=== PATIENT | female | born 1985 | race African-American/Black ===

== ENCOUNTER 2017-10-19 04:19 | Emergency (ER) | payer MEDICARE, MEDICAID ==
[~2017-10-19] VITALS: Ht 157.5 cm; Wt 75.0 kg
[2017-10-19 04:21] VITALS: BP 128/80
[2017-10-19] MEDS ORDERED: ACETAMINOPHEN 325 MG TABLET PO ONE (05:00)
[2017-10-19 05:22] LABS: BASOPHILS # (AUTO) 0.07 x10^3/uL (0-0.1); BASOPHILS % (AUTO) 1 % (0-1); EOSINOPHILS # (AUTO) 0.08 x10^3/uL (0-0.4); EOSINOPHILS % (AUTO) 1 % (1-7); LYMPHOCYTES # (AUTO) 1.97 x10^3/uL (1-3.4); LYMPHOCYTES % (AUTO) 36 % (22-44); MD NO; MEAN CORPUSCULAR HEMOGLOBIN 26.6 pg (27.0-34.8); MEAN CORPUSCULAR HGB CONC 32.7 g/dL (32.4-35.8); MEAN CORPUSCULAR VOLUME 81.3 fL (80-100); MEAN PLATELET VOLUME 8.7 fL (7.4-10.4); MONOCYTES % (AUTO) 9 % (2-9); NEUTROPHILS # (AUTO) 2.91 x10^3/uL (1.8-6.8); NEUTROPHILS % (AUTO) 53 % (42-75); PLATELET COUNT 301 x10^3/uL (130-400); RED BLOOD COUNT 4.48 x10^6/uL (3.82-5.3); RED CELL DISTRIBUTION WIDTH 16.8 % (9.6-15.2)
[2017-10-19] MEDS ORDERED: KETOROLAC 30 MG/1 ML IM ONE (06:00)
== END 2017-10-19 08:19 | disposition home or self-care (01) ==
LOC: ED 07:30
DX: R51 Headache (principal); R22.0 Localized swelling, mass and lump, head; M54.9 Dorsalgia, unspecified; E11.9 Type 2 diabetes mellitus without complications; Z59.0 Homelessness; Y04.0XXA Assault by unarmed brawl or fight, initial encounter; Y93.89 Activity, other specified; Y92.89 Other specified places as the place of occurrence of the external cause; Y99.8 Other external cause status
CPT/HCPCS: 36415; 82962; 84702; 85025; 86901; 99284

== ENCOUNTER 2017-10-25 22:38 | Emergency (ER) | payer MEDICARE, MEDICAID ==
[2017-10-25 23:06] VITALS: BP 112/82
[2017-10-25] MEDS ORDERED: INSU100C5 SQ-INSULIN (23:07)
[2017-10-25] MEDS ORDERED: ONDANSETRON ODT 4 MG PO ONE (23:30)
[2017-10-25] MEDS ORDERED: ONDANSETRON ODT 4 MG ONE (23:32)
[2017-10-26] MEDS ORDERED: CIPROFLOXACIN OPHTH SOLN 0.3%, 5ML RIGHTEYE SCH (08:00)
== END 2017-10-26 00:41 | disposition home or self-care (01) ==
LOC: ED 23:06
DX: S09.90XA Unspecified injury of head, initial encounter (principal); E11.9 Type 2 diabetes mellitus without complications; X58.XXXA Exposure to other specified factors, initial encounter; Y93.89 Activity, other specified; Y92.89 Other specified places as the place of occurrence of the external cause; Y99.8 Other external cause status
CPT/HCPCS: 70450; 70486; 82962; 99284; Q0162

== ENCOUNTER 2017-11-29 20:46 | Emergency (ER) | payer MEDICARE, MEDICAID ==
[~2017-11-29 20:46] MED LIST: INSU100C5 SQ-INSULIN
[2017-11-29 20:56] VITALS: BP 115/76
== END 2017-11-29 21:28 | disposition home or self-care (01) ==
LOC: ED 21:22
DX: J04.0 Acute laryngitis (principal); B97.89 Other viral agents as the cause of diseases classified elsewhere; E11.9 Type 2 diabetes mellitus without complications
CPT/HCPCS: 99283

== ENCOUNTER 2018-02-23 12:14 | Emergency (ER) | payer MEDICARE, MEDICAID ==
[~2018-02-23] VITALS: Ht 157.5 cm; Wt 77.3 kg
[2018-02-23] MEDS ORDERED: INSU100V8 SQ (12:39)
[2018-02-23] MEDS ORDERED: METF500T27 PO (12:39)
[2018-02-23] MEDS ORDERED: MORPHINE SULFATE 4 MG/ML, 1ML IVPush PRN (13:00)
[2018-02-23] MEDS ORDERED: ONDANSETRON 2MG/ML, 2ML IVPush ONE (13:00)
[2018-02-23] MEDS ORDERED: SODIUM CHLORIDE 0.9% 1,000ML IVBOLUS ONE (13:00)
[2018-02-23] MEDS ORDERED: MORPHINE SULFATE 4 MG/ML, 1ML ONE ×2 (13:23→14:00)
[2018-02-23] MEDS ORDERED: ONDANSETRON 2MG/ML, 2ML ONE (13:23)
[2018-02-23] MEDS ORDERED: PLEASE ENTER HEIGHT AND WEIGHT MC SCH (13:30)
[2018-02-23 13:33] LABS: FIO2 ROOM AIR %; PH, VENOUS 7.417 pH (7.320-7.420)
[2018-02-23 13:44] LABS: BASOPHILS # (AUTO) 0.03 x10^3/uL (0-0.1); BASOPHILS % (AUTO) 1 % (0-1); EOSINOPHILS # (AUTO) 0.06 x10^3/uL (0-0.4); EOSINOPHILS % (AUTO) 1 % (1-7); LYMPHOCYTES # (AUTO) 2.12 x10^3/uL (1-3.4); LYMPHOCYTES % (AUTO) 35 % (22-44); MD NO; MEAN CORPUSCULAR HEMOGLOBIN 27.6 pg (27.0-34.8); MEAN CORPUSCULAR HGB CONC 33.7 g/dL (32.4-35.8); MEAN PLATELET VOLUME 9.4 fL (7.4-10.4); MONOCYTES # (AUTO) 0.36 x10^3/uL (0.2-0.8); MONOCYTES % (AUTO) 6 % (2-9); NEUTROPHILS # (AUTO) 3.51 x10^3/uL (1.8-6.8); NEUTROPHILS % (AUTO) 58 % (42-75); PLATELET COUNT 248 x10^3/uL (130-400); RED BLOOD COUNT 4.64 x10^6/uL (3.82-5.3); RED CELL DISTRIBUTION WIDTH 15.7 % (9.6-15.2)
[2018-02-23] MEDS ORDERED: PROPARACAINE OPHTH 0.5%, 15ML ONE (13:45)
[2018-02-23 13:46] LABS: ALANINE AMINOTRANSFERASE 17 U/L (12-78); ALBUMIN 3.4 g/dL (3.4-5.0); ANION GAP 8 mmol/L (5-15); CALCIUM 8.6 mg/dL (8.5-10.1); CHLORIDE 102 mmol/L (98-107); CREATININE 0.87 mg/dL (0.55-1.02)
[2018-02-23 13:48] LABS: ALKALINE PHOSPHATASE 77 U/L (45-117); BILIRUBIN,TOTAL 0.3 mg/dL (0.2-1.0); TOTAL PROTEIN 7.7 g/dL (6.4-8.2)
[2018-02-23 13:51] LABS: MICROSCOPIC NOT IND
[2018-02-23] MEDS ORDERED: FLUCONAZOLE 100 MG TABLET ONE ×2 (13:52→13:59)
[2018-02-23 13:55] LABS: CULTURE INDICATED? NO
[2018-02-23] MEDS ORDERED: PROMETHAZINE 25 MG/ML, 1ML ONE (13:59)
[2018-02-23] MEDS ORDERED: FLUORESCEIN OPHTHALMIC 1 MG STRIP EACHEYE ONE (14:00)
[2018-02-23] MEDS ORDERED: PROMETHAZINE 25 MG/ML, 1ML IM ONE (14:00)
[2018-02-23] MEDS ORDERED: FLUCONAZOLE 100 MG TABLET PO ONE (14:00)
[2018-02-23] MEDS ORDERED: PROPARACAINE OPHTH 0.5%, 15ML EACHEYE ONE (14:00)
[2018-02-23 14:01] LABS: ACETONE, SERUM Negative (Negative)
[2018-02-23] MEDS ORDERED: INSULIN REGULAR 100 UNITS/ML, 3ML VIAL IVPush ONE (14:30)
[2018-02-23] MEDS ORDERED: INSULIN REGULAR 100 UNITS/ML, 3ML VIAL ONE (14:31)
[2018-02-23] MEDS ORDERED: DIPHENHYDRAMINE 50 MG/ML, 1ML ONE (14:37)
[2018-02-23] MEDS ORDERED: DIPHENHYDRAMINE 50 MG/ML, 1ML IVPush ONE (15:00)
[2018-02-23] MEDS ORDERED: METHOCARBAMOL 750 MG TABLET ONE (16:18)
[2018-02-23] MEDS ORDERED: METHOCARBAMOL 750 MG TABLET PO ONE (16:30)
[2018-02-23 16:36] VITALS: BP 110/67
== END 2018-02-23 16:41 | disposition home or self-care (01) ==
LOC: ED 16:35
DX: S63.521A Sprain of radiocarpal joint of right wrist, initial encounter (principal); E11.65 Type 2 diabetes mellitus with hyperglycemia; H57.12 Ocular pain, left eye; R11.2 Nausea with vomiting, unspecified; X58.XXXA Exposure to other specified factors, initial encounter; Y93.89 Activity, other specified; Y92.89 Other specified places as the place of occurrence of the external cause; Y99.8 Other external cause status
CPT/HCPCS: 70450; 70486; 71045; 73110; 80053; 81003; 82010; 82803; 82962; 83690; 85025; 96361; 96372; 96374; 96375; 99285; J1200; J2405; J2550; J7030

== ENCOUNTER 2018-04-05 04:54 | Emergency (ER) | payer MEDICARE, MEDICAID ==
[~2018-04-05] VITALS: Ht 157.5 cm; Wt 79.1 kg
[~2018-04-05 04:54] MED LIST changes: +INSU100V8 SQ; +METF500T27 PO
[2018-04-05] MEDS ORDERED: ONDANSETRON 2MG/ML, 2ML ONE (05:22)
[2018-04-05] MEDS ORDERED: FAMOTIDINE 20 MG/2 ML ONE (05:22)
[2018-04-05] MEDS ORDERED: FAMOTIDINE 20 MG/2 ML IVP ONE (05:30)
[2018-04-05] MEDS ORDERED: SODIUM CHLORIDE 0.9% 1,000ML IVBOLUS ONE (05:30)
[2018-04-05] MEDS ORDERED: ONDANSETRON 2MG/ML, 2ML IVPush ONE (05:30)
[2018-04-05] MEDS ORDERED: MORPHINE SULFATE 4 MG/ML, 1ML ONE ×2 (06:11→07:22)
[2018-04-05] MEDS: MORPHINE SULFATE 4 MG/ML, 1ML IVPush PRN ×2 (06:34→07:27)
[2018-04-05 06:49] LABS: FIO2 RA %; PH, VENOUS 7.441 pH (7.320-7.420)
[2018-04-05 06:50] LABS: BASOPHILS # (AUTO) 0.06 x10^3/uL (0-0.1); BASOPHILS % (AUTO) 1 % (0-1); EOSINOPHILS # (AUTO) 0.03 x10^3/uL (0-0.4); EOSINOPHILS % (AUTO) 0 % (1-7); LYMPHOCYTES # (AUTO) 1.52 x10^3/uL (1-3.4); LYMPHOCYTES % (AUTO) 14 % (22-44); MD NO; MEAN CORPUSCULAR HEMOGLOBIN 27.4 pg (27.0-34.8); MEAN CORPUSCULAR HGB CONC 33.6 g/dL (32.4-35.8); MEAN CORPUSCULAR VOLUME 81.6 fL (80-100); MEAN PLATELET VOLUME 9.1 fL (7.4-10.4); MONOCYTES % (AUTO) 5 % (2-9); NEUTROPHILS # (AUTO) 8.97 x10^3/uL (1.8-6.8); NEUTROPHILS % (AUTO) 81 % (42-75); PLATELET COUNT 288 x10^3/uL (130-400); RED BLOOD COUNT 5.02 x10^6/uL (3.82-5.3); RED CELL DISTRIBUTION WIDTH 15.4 % (9.6-15.2)
[2018-04-05 07:00] LABS: ALANINE AMINOTRANSFERASE 21 U/L (12-78); ALBUMIN 3.7 g/dL (3.4-5.0); ANION GAP 10 mmol/L (5-15); CALCIUM 8.4 mg/dL (8.5-10.1); CHLORIDE 102 mmol/L (98-107); CREATININE 0.77 mg/dL (0.55-1.02)
[2018-04-05 07:04] LABS: ALKALINE PHOSPHATASE 83 U/L (45-117); BILIRUBIN,TOTAL 0.8 mg/dL (0.2-1.0); TOTAL PROTEIN 8.2 g/dL (6.4-8.2)
[2018-04-05 07:12] LABS: ACETONE, SERUM Trace (10mg/dL) mg/dL (Negative)
[2018-04-05 08:04] LABS: MICROSCOPIC MANUAL
[2018-04-05] MEDS ORDERED: DIPHENHYDRAMINE 50 MG/ML, 1ML ONE ×2 (08:04→10:53)
[2018-04-05 08:25] LABS: CULTURE INDICATED? YES
[2018-04-05] MEDS ORDERED: DIPHENHYDRAMINE 50 MG/ML, 1ML IVPush ONE (08:30)
[2018-04-05] MEDS ORDERED: HYDROmorphone 2 MG/ML, 1ML ONE (09:27)
[2018-04-05] MEDS ORDERED: HYDROmorphone 2 MG/ML, 1ML IVPush PRN (09:30)
[2018-04-05] MEDS ORDERED: OMNIPAQUE 350 MG/ML, 100ML BOTTLE ONE (10:12)
[2018-04-05 11:03] VITALS: BP 110/78
== END 2018-04-05 11:06 | disposition home or self-care (01) ==
LOC: ED 07:50
DX: N83.202 Unspecified ovarian cyst, left side (principal); E11.9 Type 2 diabetes mellitus without complications; Z90.89 Acquired absence of other organs
CPT/HCPCS: 74177; 80053; 82010; 82803; 82962; 83690; 84703; 85025; 87086; 96361; 96374; 96375; 96376; 99284; J1200; J2405; J3490; J7030; Q9967

== ENCOUNTER 2018-05-02 23:03 | Emergency (ER) | payer MEDICAID, MEDICARE, OTHER ==
[~2018-05-02] VITALS: Ht 157.5 cm; Wt 81.2 kg
[2018-05-02] MEDS ORDERED: HYDROcodone/APAP 5/325 TABLET PO ONE (23:30)
[2018-05-02] MEDS ORDERED: ONDANSETRON ODT 4 MG PO ONE (23:30)
[2018-05-02] MEDS ORDERED: CYCLOBENZAPRINE 10 MG TABLET PO SCH (23:30)
[2018-05-03] MEDS ORDERED: ONDANSETRON ODT 4 MG ONE (00:38)
[2018-05-03] MEDS ORDERED: HYDROcodone/APAP 5/325 TABLET ONE (00:39)
[2018-05-03 02:03] VITALS: BP 110/71
== END 2018-05-03 02:04 | disposition home or self-care (01) ==
LOC: ED 23:31
DX: S16.1XXA Strain of muscle, fascia and tendon at neck level, initial encounter (principal); S39.012A Strain of muscle, fascia and tendon of lower back, initial encounter; S80.02XA Contusion of left knee, initial encounter; S09.8XXA Other specified injuries of head, initial encounter; B34.9 Viral infection, unspecified; E11.65 Type 2 diabetes mellitus with hyperglycemia; Z90.49 Acquired absence of other specified parts of digestive tract; V47.6XXA Car passenger injured in collision with fixed or stationary object in traffic accident, initial encounter; Y93.89 Activity, other specified; Y92.410 Unspecified street and highway as the place of occurrence of the external cause; Y99.8 Other external cause status
CPT/HCPCS: 72110; 73564; 73590; 99283; Q0162